=== PATIENT | male | born 1995 | race Caucasian/White ===

== ENCOUNTER 2018-10-26 21:00 | Emergency (ER) | payer OTHER ==
--- NOTE | 2018-10-26 21:09 | PDOC ---
Rapid Medical Evaluation Chief Complaint: Chest Pain Time Seen by Provider: 10/26/18 21:07 Medical Evaluation: 10/26/18 21:07 I did a brief in person evaluation on this patient. CC: CP HPI: Pt is a 23 Yo male who complains of CP x 1 day. Denies IV drug use. Denies personal or family CV hx. PE: Skin: Clear Lungs: Clear Heart:RRR Abd: soft, non tender MS: Moves all extremities without difficulty Neuro: alert Psych: appropriate affect. I have ordered: Cv protocol Pt will proceed to main ED for further evaluation. Discharge Disposition - Diagnosis Chest pain Qualifiers: Chest pain type: unspecified Qualified Code(s): R07.9 - Chest pain, unspecified - Referrals - Patient Instructions - Post Discharge Activity
[2018-10-26 21:13] VITALS: BP 148/76; PULSE 89; TEMP 97.6; BMI 25.8
--- NOTE | 2018-10-27 10:24 | EKG ---
Test Reason : Blood Pressure : / mmHG Vent. Rate : 085 BPM Atrial Rate : 085 BPM P-R Int : 164 ms QRS Dur : 088 ms QT Int : 368 ms P-R-T Axes : 065 045 044 degrees QTc Int : 437 ms POOR DATA QUALITY, INTERPRETATION MAY BE ADVERSELY AFFECTED SINUS RHYTHM WITH OCCASIONAL PREMATURE VENTRICULAR COMPLEXES OTHERWISE NORMAL ECG NO PREVIOUS ECGS AVAILABLE Confirmed by CARLTON FORTE, COLIN ([id number]) on 10/27/2018 10:23:45 AM Referred By: Confirmed By:COLIN VINCENT MD
== END 2018-10-27 00:30 | disposition left against medical advice (07) ==
LOC: JER 21:00
DX: R07.9 Chest pain, unspecified (principal)
CPT/HCPCS: 93005; 93010; 99281-25